=== PATIENT | female | born 1935 | race Caucasian/White ===

== ENCOUNTER → 2017-03-02 | Outpatient (CLI) | payer MEDICARE, OTHER ==
[~2017-03-02] MED LIST: ANTIVERT12.5 MG PO; APRESOLINE10 MG PO; ARTHRITIS PAIN; ARTHRITIS PAIN650 M3 PO; ASPIRIN PO; ASPIRIN81 M1 PO; ASPIRIN81 MG PO; ATIVAN PO; CENTRUM SILVER PO; CLARITIN10 M1 PO; CLARITIN10 M2 PO; ENDOCET; ENTOCORT EC3 MG PO; FISH OIL 1,0001 EACH PO; IMDUR PO; IMDUR-ER60 MG PO; IMIPRAMINE HCL50 MG PO; LIPITOR20 MG PO; LISINOPRIL-HCTZ PO; LISINOPRIL20 MG PO; MULTIPLE VITAMI1 T11 PO; NEURONTIN PO; NITROGLYCERIN0.4 MG SL; NORVASC PO; OMEPRAZOLE40 MG PO; PLAVIX PO; PRILOSEC PO; Prilosec PO; TEMAZEPAM PO; TOFRANIL PO; TOPROL XL PO; TOPROL XL50 MG PO; VITAMIN D PO; VITAMIN D-32000 UNI1 PO; VITAMIN D31000 UNIT PO; ZOCOR PO; ZOLOFT50 MG PO
--- NOTE | ~2017-03-02 | US128 ---
[id number] [facility] [address] [place], [place] [address] [id number] O MR#: [id number] Acc #: [id number] NAME: SRI RAM : 1935 SEX: F STUDY DATE/TIME: 03/02/2017 13:51 UNIT: CGUS ROOM: STUDY DESCRIPTION: Thyroid Attending Physician: Yony Palacios M.D. Referring Physician: Yony Palacios M.D. Ordering Physician: Yony Palacios M.D. Primary Care Physician: Romain Mcfarlane M.D. MEDICAL IMAGING REPORT This report is preliminary unless electronic signature is present EXAM Thyroid ultrasound. DATE 03/02/2017 HISTORY Thyroid nodules. Followup. COMPARISON Thyroid ultrasound, 01/02/2016. FINDINGS The right thyroid lobe measures 4.8 x 1.7 x 1.5 cm. The isthmus measures 3.7 mm thickness. The left thyroid lobe measures 1.5 x 3.7 x 1.2 cm thickness. The technologist has placed calipers on a hypoechoic, near anechoic nodule located at or potentially external to the inferior pole of the right thyroid lobe measuring 1.1 x 1.1 x 0.8 cm. It is not entirely clear to me whether this is truly within the thyroid parenchyma. It demonstrates no hypervascularity on Doppler imaging. It is not clearly seen on additional sagittal imaging performed today. It is not seen on previous 01/02/2016 thyroid ultrasound. A solid hypoechoic circumscribed nodule within the right upper thyroid pole measures 6 x 4 x 7 mm, compared to 5 x 4 x 6 mm previously, unchanged. Another tiny hypoechoic cystic-solid nodule in the medial right mid to upper thyroid lobe measures 4 x 3 x 5 mm, compared to 4 x 3 x 4 mm previously, not appreciably changed. The left thyroid lobe is heterogeneous without discrete nodularity. No suspicious microcalcifications are seen. Extrathyroidal soft tissues otherwise appear unremarkable. IMPRESSION 1. A hypoechoic-near anechoic nodular density is seen in the vicinity of the right lower thyroid pole measuring 1.1 cm today. It is unclear to me whether this is within the thyroid parenchyma or external to the thyroid parenchyma. It is not seen on additionally submitted sagittal imaging today, and is not visualized on the 01/02/2016 thyroid ultrasound. Consider short-term ultrasound thyroid followup. It is favored to represent a benign cystic type lesion. 2. Other right thyroid nodules appear unchanged. Dictated by... Margret Stoddard M.D. THIS IS AN ELECTRONICALLY VERIFIED REPORT Margret Stoddard M.D. at 03/03/2017 5:06 PM NISA/nichol TD: 03/03/2017 10:30 JOB #: [id number] MEDICAL IMAGING REPORT Page 1 of 1 COPY
== END | disposition home or self-care (01) ==
LOC: CGUS 13:17
DX: E04.1 Nontoxic single thyroid nodule (principal); E04.2 Nontoxic multinodular goiter
CPT/HCPCS: 76536